=== PATIENT | female | born 1940 | race Two or more races ===

== ENCOUNTER 2017-08-28 12:00 | Observation (INO) | payer OTHER, MEDICAID ==
[2017-08-28] MEDS ORDERED: ONDANSETRON 4 MG/2 ML VIAL IVP ONE (12:13)
--- NOTE | 2017-08-28 12:16 | EDPHY ---
H & P Time Seen by Provider: 08/28/17 12:04 HPI/ROS: CHIEF COMPLAINT: Seizure, abdominal pain HISTORY OF PRESENT ILLNESS: The patient is a 77-year-old female who comes via EMS from [facility] with history of TIA, dementia, hypotension and chronic abdominal pain. [facility] staff reported that around 830 this morning she had a tonic-clonic seizure. She has never had seizures before. The patient does not remember this. She denies headache. She does state that she vomited 2 times in the middle the night and that she has epigastric pain typically but does not currently. The assisted called EMS around noon requesting that she be sent to the ER to evaluate for abdominal pain and seizures. The patient has not had a fever. The patient states that she feels normal right now. She is not sure whether not she has had diarrhea. She denies any cardiac history. REVIEW OF SYSTEMS: Constitutional: denies: chills, fever, recent illness, recent injury EENTM: denies: blurred vision, double vision, nose congestion Respiratory: denies: cough, shortness of breath Cardiac: denies: chest pain, irregular heart rate, lightheadedness, palpitations Gastrointestinal/Abdominal: See HPI Genitourinary: denies: dysuria, frequency, hematuria, pain Musculoskeletal: denies: joint pain, muscle pain Skin: denies: lesions, rash, jaundice, bruising Neurological: denies: See HPI headache, numbness, paresthesia, tingling, dizziness, weakness Hematologic/Lymphatic: denies: blood clots, easy bleeding, easy bruising Immunologic/allergic: denies: HIV/AIDS, transplant EXAM: GENERAL: Well-appearing, well-nourished and in no acute distress. HEAD: Atraumatic, normocephalic. EYES: Pupils equal round and reactive to light, extraocular movements intact, sclera anicteric, conjunctiva are normal. ENT: TMs normal, nares patent, oropharynx clear without exudates. Moist mucous membranes. NECK: Normal range of motion, supple without lymphadenopathy or JVD. LUNGS: Breath sounds clear to auscultation bilaterally and equal. No wheezes rales or rhonchi. HEART: Regular rate and rhythm without murmurs, rubs or gallops. ABDOMEN: Distended, nontender BACK: No CVA tenderness, no spinal tenderness, step-offs or deformities EXTREMITIES: Normal range of motion, no pitting or edema. No clubbing or cyanosis. NEUROLOGICAL: Cranial nerves II through XII grossly intact. Normal speech, normal gait. 5/5 strength, normal movement in all extremities, normal sensation PSYCH: Normal mood, normal affect. SKIN: Warm, dry, normal turgor, no visible rashes or lesions. Source: Patient, EMS, [facility] records Exam Limitations: No limitations - Medical/Surgical History Other PMH: TIA, dementia, hypertension, chronic abdominal pain - Family History Significant Family History: No pertinent family hx - Social History Alcohol Use: Sober Drug Use: None Constitutional: Initial Vital Signs Temperature (C) 36.8 C 08/28/17 12:07 Heart Rate 76 08/28/17 12:07 Respiratory Rate 16 08/28/17 12:07 Blood Pressure 104/66 08/28/17 12:07 O2 Sat (%) 92 08/28/17 12:07 O2 Delivery Mode Nasal Cannula O2 (L/minute) 2 Allergies/Adverse Reactions: alprazolam Allergy (Verified 08/28/17 12:19) Home Medications: Medication Instructions Recorded Acetaminophen [Tylenol ES 500 mg 1,000 mg PO Q8HRS PRN 08/28/17 (*)] Bisacodyl [Dulcolax] 10 mg RC DAILY PRN 08/28/17 LORazepam [Ativan (*)] 2 mg PO BID PRN 08/28/17 Pantoprazole Sodium [Protonix 40mg 40 mg PO DAILY 08/28/17 (*)] QUEtiapine FUMARATE [Seroquel 200 200 mg PO DAILY PRN 08/28/17 mg (*)] QUEtiapine FUMARATE [Seroquel 200 200 mg PO HS 08/28/17 mg (*)] Sennosides/Docusate Sodium 1 each PO DAILY 08/28/17 [Senna-S Tablet] Medical Decision Making - Diagnostics EKG Interpretation: An EKG obtained and was read and documented in trace view. Please see trace view for full reading and report. Sinus rhythm, no acute ischemic changes Imaging: Discussed imaging studies w/ african history professor Radiologist ED Course/Re-evaluation: 11:10 p.m. the patient is slightly anemic. Her previous is several years old. She denies blood or dark stools. We will perform a rectal exam when she returns from CT scan and a cath urine. 1:50 p.m. patient continues to complain of moderate abdominal pain. She is slightly hypotensive. I performed a rectal exam which is grossly negative but will be sent to the lab. We are obtaining a urinalysis by catheterization. CT scan is done and pending. 2:15 p.m. we discussed the test results. I would like to admit the patient for hypotension and anemia and diarrhea. I discussed the case with Dr. Duffy who agrees and will accept her to the [facility] floor. He also requests a lactic be drawn. We will began hydrating the patient. Differential Diagnosis: Partial list of the Differential diagnosis considered include but were not limited to; seizure, infection, obstruction, diverticulitis, GI bleed, peptic ulcer disease and although unlikely based on the history and physical exam, I also considered ischemia, volvulus. - Data Points Laboratory Results: Laboratory Results 08/28/17 12:30 08/28/17 12:30 Medications Given: Acetaminophen (Tylenol) 1,000 mg PO Q8HRS PRN PRN Reason: Pain, Mild Stop: 02/24/18 14:45 Last Admin: 08/28/17 20:42 Dose: 1,000 mg Enoxaparin Sodium (Lovenox) 40 mg SC DAILY JOSSELINE Stop: 02/25/18 08:59 Last Admin: 08/29/17 09:20 Dose: 40 mg Lorazepam (Ativan) 2 mg PO BID PRN PRN Reason: Anxiety Stop: 02/24/18 14:45 Last Admin: 08/29/17 09:25 Dose: 2 mg Melatonin (Melatonin) 3 mg PO HS JOSSELINE Stop: 02/24/18 20:59 Last Admin: 08/28/17 20:41 Dose: 3 mg Pantoprazole Sodium (Protonix) 40 mg PO DAILY JOSSELINE Stop: 02/25/18 08:59 Last Admin: 08/29/17 09:20 Dose: 40 mg Quetiapine Fumarate (Seroquel) 100 mg PO HS JOSSELINE Stop: 02/24/18 20:59 Last Admin: 08/28/17 20:41 Dose: 100 mg Discontinued Medications Sodium Chloride (Ns) 1,000 mls @ 0 mls/hr IV EDNOW ONE; Wide Open PRN Reason: Protocol Stop: 08/28/17 14:18 Last Admin: 08/28/17 15:04 Dose: 1,000 mls Dextrose/Sodium Chloride (D5w 1/2 Ns) 1,000 mls @ 100 mls/hr IV CONT JOSSELINE Stop: 02/24/18 14:29 Last Admin: 08/28/17 16:42 Dose: 1,000 mls Ondansetron HCl (Zofran) 4 mg IVP EDNOW ONE Stop: 08/28/17 12:14 Last Admin: 08/28/17 12:26 Dose: 4 mg Departure - Departure Disposition: [facility] Clinical Impression: Dehydration Hypotension Qualifiers: Hypotension type: other hypotension type Qualified Code(s): I95.89 - Other hypotension Diarrhea Qualifiers: Diarrhea type: presumed infectious Qualified Code(s): A09 - Infectious gastroenteritis and colitis, unspecified Anemia Qualifiers: Anemia type: unspecified type Qualified Code(s): D64.9 - Anemia, unspecified Condition: Fair
[2017-08-28 12:37] LABS: PLATELET COUNT 330 10^3/uL (150-400)
--- NOTE | 2017-08-28 12:41 | CPEKG ---
Heart Rate: 72 RR Interval: 833 P-R Interval: 180 QRSD Interval: 88 QT Interval: 388 QTC Interval: 425 P Hessmer: 18 QRS Hessmer: -16 T Wave Hessmer: 9 EKG Severity - ABNORMAL ECG - EKG Impression: SINUS ARRHYTHMIA, RATE 63-82 Electronically Signed By: Michael Alejandre 28-Aug-2017 12:43:25
[2017-08-28 12:55] LABS: INR 0.89 (0.83-1.16); PROTIME(PATIENT) 12.3 SEC (12.0-15.0)
[2017-08-28] MEDS ORDERED: IOPAMIDOL (ISOVUE-300) 100 ML BTL ONE (13:03)
[2017-08-28] MEDS ORDERED: NS 1,000 ML IV ONE (14:17)
[2017-08-28] MEDS ORDERED: PROMETHAZINE HCL 25 MG TAB PO PRN (14:18)
[2017-08-28] MEDS ORDERED: PROMETHAZINE HCL 25 MG/ML INJ IVP PRN (14:18)
[2017-08-28] MEDS ORDERED: ACETAMINOPHEN 325 MG TAB PO PRN (14:18)
[2017-08-28] MEDS ORDERED: ONDANSETRON 4 MG/2 ML VIAL IVP PRN (14:18)
[2017-08-28] MEDS ORDERED: D5W 1/2 NS 1,000 ML IV SCH (14:30)
--- NOTE | 2017-08-28 15:03 | PDGENHP ---
History and Physical - Chief Complaint Acute seizure - History of Present Illness Primary care provider: Dr. Primitivo Lema HPI: 77-year-old female presenting with acute seizure characterized as tonic colonic, with onset at 8:30 a.m. on the day of presentation. Patient does not recall any of the events of the seizure, and history is provided by the longterm. The patient does endorse associated abdominal pain and diarrhea, characterized as normal colored loose stool, nonbloody, nonmelanotic. The patient reports that duration of her abdominal pain has been for quite some time , and is located diffusely throughout. She denies any dysuria, urinary frequency, fever or chills. She reports that she is normally constipated, and has been taking a stool softener regularly. The onset of the diarrhea was on the day of this presentation. Review of the patient's records from [facility] indicate that she was sent here to evaluate for possible seizure, ongoing abdominal pain. The patient otherwise has no complaints at this time, simply wants her Ativan. History Information - Allergies/Home Medication List Allergies/Adverse Reactions: alprazolam Allergy (Verified 08/28/17 12:19) Home Medications: Acetaminophen [Tylenol ES 500 mg (*)] 1,000 mg PO Q8HRS PRN 08/28/17 [Last Taken Unknown] Bisacodyl [Dulcolax] 10 mg RC DAILY PRN 08/28/17 [Last Taken Unknown] LORazepam [Ativan (*)] 2 mg PO BID PRN 08/28/17 [Last Taken Unknown] Pantoprazole Sodium [Protonix 40mg (*)] 40 mg PO DAILY 08/28/17 [Last Taken Unknown] QUEtiapine FUMARATE [Seroquel 200 mg (*)] 200 mg PO DAILY PRN 08/28/17 [Last Taken Unknown] QUEtiapine FUMARATE [Seroquel 200 mg (*)] 200 mg PO HS 08/28/17 [Last Taken Unknown] Sennosides/Docusate Sodium [Senna-S Tablet] 1 each PO DAILY 08/28/17 [Last Taken Unknown] I have personally reviewed and updated: family history, medical history, social history, surgical history - Past Medical History dementia, diabetes type 2, GERD, hypertension, TIA Additional medical history: Chronic abdominal pain and constipation. Atelectasis. Generalized anxiety disorder. Hypothyroidism. Reports CKD stage 3. Chronic benzodiazepine dependency - Surgical History Additional surgical history: Appendectomy. Cholecystectomy. Hysterectomy and possible bladder sling - Family History Additional family history: Reportedly no family history of colon cancer - Social History Smoking Status: Never smoked Alcohol Use: Sober Drug Use: None Additional social history: Resides at [facility], believes that she resides with her daughter and her family Review of Systems Review of Systems: ROS: 10pt was reviewed & negative except for what was stated in HPI & below Gastrointestinal: Reports: abdominal pain, diarrhea Physical Exam Physical Exam: Temp Pulse Resp BP Pulse Ox 36.8 C 71 18 99/56 L 95 08/28/17 12:07 08/28/17 13:04 08/28/17 13:04 08/28/17 13:04 08/28/17 13:04 Constitutional: no apparent distress, appears nourished, not in pain Eyes: PERRL, anicteric sclera, EOMI Ears, Nose, Mouth, Throat: moist mucous membranes, hearing normal, ears appear normal, no oral mucosal ulcers Cardiovascular: regular rate and rhythym, no murmur, rub, or gallop, No edema Respiratory: no respiratory distress, no rales or rhonchi, clear to auscultation Gastrointestinal: normoactive bowel sounds, tenderness (Mild to moderate depth palpation right lower quad, left upper quadrant), No guarding, No distension Genitourinary: no bladder fullness, other (No CVA tenderness), No no bladder tenderness (Mild) Skin: warm, normal color, no rashes or abrasions, no fluctuance, no induration, No mottled Neurologic: AAOx3, sensation intact bilaterally, CN II-XII Intact, No weakness ( Motor strength 5/5 bilateral upper and lower extremities) Psychiatric: not anxious, other (Intermittently delayed thought processes, concentration 03/24, patient is unaware that she is residing at [facility]), No agitated Lab Data & Imaging Review 08/28/17 12:30 08/28/17 12:30 WBC 7.90 10^3/uL (3.80-9.50) 08/28/17 12:30 RBC 4.09 10^6/uL (4.18-5.33) L 08/28/17 12:30 Hgb 10.4 g/dL (12.6-16.3) L 08/28/17 12:30 Hct 33.0 % (38.0-47.0) L 08/28/17 12:30 MCV 80.7 fL (81.5-99.8) L 08/28/17 12:30 MCH 25.4 pg (27.9-34.1) L 08/28/17 12:30 MCHC 31.5 g/dL (32.4-36.7) L 08/28/17 12:30 RDW 17.8 % (11.5-15.2) H 08/28/17 12:30 Plt Count 330 10^3/uL (150-400) 08/28/17 12:30 MPV 9.4 fL (8.7-11.7) 08/28/17 12:30 Neut % (Auto) 90.4 % (39.3-74.2) H 08/28/17 12:30 Lymph % (Auto) 5.2 % (15.0-45.0) L 08/28/17 12:30 [place] % (Auto) 3.4 % (4.5-13.0) L 08/28/17 12:30 Eos % (Auto) 0.3 % (0.6-7.6) L 08/28/17 12:30 Baso % (Auto) 0.4 % (0.3-1.7) 08/28/17 12:30 Nucleat RBC Rel Count 0.0 % (0.0-0.2) 08/28/17 12:30 Absolute Neuts (auto) 7.15 10^3/uL (1.70-6.50) H 08/28/17 12:30 Absolute Lymphs (auto) 0.41 10^3/uL (1.00-3.00) L 08/28/17 12:30 Absolute Monos (auto) 0.27 10^3/uL (0.30-0.80) L 08/28/17 12:30 Absolute Eos (auto) 0.02 10^3/uL (0.03-0.40) L 08/28/17 12:30 Absolute Basos (auto) 0.03 10^3/uL (0.02-0.10) 08/28/17 12:30 Absolute Nucleated RBC 0.00 10^3/uL (0-0.01) 08/28/17 12:30 Immature Gran % 0.3 % (0.0-1.1) 08/28/17 12:30 Immature Gran # 0.02 10^3/uL (0.00-0.10) 08/28/17 12:30 PT 12.3 SEC (12.0-15.0) 08/28/17 12:30 INR 0.89 (0.83-1.16) 08/28/17 12:30 Sodium 137 mEq/L (134-144) 08/28/17 12:30 Potassium 4.5 mEq/L (3.5-5.2) 08/28/17 12:30 Chloride 106 mEq/L (97-110) 08/28/17 12:30 Carbon Dioxide 19 mEq/l (22-31) L 08/28/17 12:30 Anion Gap 12 mEq/L (8-16) 08/28/17 12:30 BUN 21 mg/dL (7-23) 08/28/17 12:30 Creatinine 1.0 mg/dL (0.6-1.0) 08/28/17 12:30 Estimated GFR 54 08/28/17 12:30 Glucose 127 mg/dL (70-100) H 08/28/17 12:30 Calcium 9.0 mg/dL (8.5-10.4) 08/28/17 12:30 Total Bilirubin 0.7 mg/dL (0.1-1.4) 08/28/17 12:30 Conjugated Bilirubin 0.2 mg/dL (0.0-0.5) 08/28/17 12:30 Unconjugated Bilirubin 0.5 mg/dL (0.0-1.1) 08/28/17 12:30 AST 20 IU/L (14-46) 08/28/17 12:30 ALT 29 IU/L (9-52) 08/28/17 12:30 Alkaline Phosphatase 72 IU/L (38-126) 08/28/17 12:30 Troponin I < 0.012 ng/mL (0.000-0.034) 08/28/17 12:30 Total Protein 6.3 g/dL (6.3-8.2) 08/28/17 12:30 Albumin 3.6 g/dL (3.5-5.0) 08/28/17 12:30 Lipase 205 IU/L (23-300) 08/28/17 12:30 Urine Color YELLOW 08/28/17 14:20 Urine Appearance CLEAR 08/28/17 14:20 Urine pH 5.0 (5.0-7.5) 08/28/17 14:20 Ur Specific [place] 1.035 (1.002-1.030) H 08/28/17 14:20 Urine Protein NEGATIVE (NEGATIVE) 08/28/17 14:20 Urine Ketones NEGATIVE (NEGATIVE) 08/28/17 14:20 Urine Blood NEGATIVE (NEGATIVE) 08/28/17 14:20 Urine Nitrate NEGATIVE (NEGATIVE) 08/28/17 14:20 Urine Bilirubin NEGATIVE (NEGATIVE) 08/28/17 14:20 Urine Urobilinogen NEGATIVE EU (0.2-1.0) 08/28/17 14:20 Ur Leukocyte Esterase NEGATIVE (NEGATIVE) 08/28/17 14:20 Urine RBC NONE SEEN /hpf (0-3) 08/28/17 14:20 Urine WBC 1-3 /hpf (0-3) 08/28/17 14:20 Ur Epithelial Cells NONE SEEN /lpf (NONE-1+) 08/28/17 14:20 Urine Bacteria TRACE /hpf (NONE SEEN) H 08/28/17 14:20 Hyaline Casts 1-5 /lpf (0-1) 08/28/17 14:20 Urine Mucus 1+ /lpf (NONE-1+) 08/28/17 14:20 Urine Glucose NEGATIVE (NEGATIVE) 08/28/17 14:20 Visualized and Interpreted EKG results: Yes EKG Interpretation: Positive for: other (Sinus arrhythmia, T-wave inversion in lead 3) Assessment & Plan Assessment: 77-year-old female presents with reportedly acute seizure in the setting of chronic abdominal pain, acute diarrhea Plan: 1. Seizure. Acute, new problem this provider, further workup is indicated. Unclear exactly what transpired 830 on the morning of presentation, it was reported as a seizure by [facility] and was described as tonic colonic -continue patient on seizure precautions -she has a metabolic acidosis, so this may be consistent with a seizure -I reviewed her outside records from Dr. Primitivo Lema at [facility], records indicating that on August 25 he was weaning her seroquel but was continuing her Ativan scheduled and with p.r.n. dosing, so do not believe the patient is experiencing a seizure from benzodiazepine withdrawal -her head CT demonstrates no intracranial abnormality, but she does have atrophy , and seizures in patients with atrophy and dementia can occur, will observe overnight and recommend outpatient neurology follow-up with EEG unless there is additional seizure activity while she is being monitored -hold on antiepileptic drug therapy at this time -get urinalysis to rule out urinary tract infection, get GI PCR panel to evaluate for viral/bacterial GI precipitant 2. Diarrhea. Acute, new problem this provider, further workup indicated. This does appear to be acute for the patient, and is the singular symptom of which she is acutely aware, CT imaging demonstrating diffuse small-bowel inflammation, likely consistent with gastroenteritis -get GI PCR panel -provide supportive IV fluids -hold on antidiarrheal therapy until PCR panel available -hold her stool softeners 3. Abdominal pain. Acute on chronic, likely secondary to enteritis, with underlying chronic abdominal discomfort, review of outside records indicates that she was recently placed on scheduled Tylenol, liver panel remarkable, continue home dosing 4. Chronic encephalopathy. Patient has a known history of dementia, she is currently unaware that she is residing at [facility] and believes that she is living with her daughter and her family -review of outside records also indicates that the patient has recently been suffering from some insomnia, with recent reduction in her Seroquel dosage from 200 mg nightly to 100 mg nightly -will continue the Seroquel as adjusted on 08/25 at 100 mg nightly -will add melatonin 3 mg at bedtime -will get therapy assessments, continue to assist patient with ADLs -please utilize the counter attendant services as the patient's elim ira language is Chinese and she will likely perform better in her 1st language 5. Diabetes mellitus type 2. No indication for skilled this time 6. Anemia. Hemoglobin level is 10.4 with an MCV of 80, review of outside records from 01/13/2016 demonstrates hemoglobin is 14.1 at that time -discussed with Dr. Michael Alejandre, he has reported to me that the patient's fecal occult blood negative -will get iron studies to evaluate iron deficient component and provide IV iron if needed -given patient's current functional status and longterm dependency, would not recommend additional colonoscopy workup at this time but this can be reconsidered with full family discussion 7. Chronic benzodiazepine dependency. Continue patient's home dosage Ativan, she is currently requesting Diet. Clears as tolerated Prophylaxis. High risk patient, Lovenox 40, does not appear to be bleeding her Nestor code. Full per review of [facility] records Disposition. Anticipated discharge is 08/29, pending stabilization and further workup of conditions outlined above.
[2017-08-28] MEDS: LORazepam 1 MG TAB PO PRN (15:08)
[2017-08-28] MEDS: MELATONIN 3 MG TAB PO SCH (20:41)
[2017-08-28] MEDS: QUEtiapine FUMARATE 100 MG TAB PO SCH (20:41)
[2017-08-28] MEDS: ACETAMINOPHEN 500 MG TAB PO PRN (20:42)
[2017-08-29 06:33] LABS: PLATELET COUNT 300 10^3/uL (150-400)
--- NOTE | 2017-08-29 09:17 | HOSPPROG ---
Hospitalist Progress Note Assessment/Plan: 77 y/o female noted to have a seizure at the longterm. On admission she was c/o abdominal pain and diarrhea. Today is my first encounter w the patient, chart reviewed. Met w the patient w the regional construction manager *Seizure -none further -suspect this occurred because she was dehydrated and possibly passed out -she had been weaning off Seroquel and is on scheduled Ativan -head CT shows nothing acute *gastroenteritis -no further diarrhea -she's hungry and want s to eat *abdominal pain -no further complaints *dementia with chronic encephalopathy -she is confused during my interview, thinks she lives with her family *anemia/iron deficiency -further f/u in OP setting -will add oral iron to her medication list *chronic benzodiazepine dependence -home meds resumed *Plan; if improved this afternoon and eating and drinking, will dc to [facility] Subjective: Elvia says she's hungry. Has no abdominal pain. Objective: Vital Signs Temp Pulse Resp BP Pulse Ox 36.6 C 90 18 133/77 H 91 L 08/29/17 08:44 08/29/17 08:44 08/29/17 08:44 08/29/17 08:44 08/29/17 08:44 Laboratory Results 08/29/17 04:54 08/29/17 04:54 08/28/17 08/29/17 08/30/17 05:59 05:59 05:59 Intake Total 950 Output Total 300 Balance 650 PT 12.3 SEC (12.0-15.0) 08/28/17 12:30 INR 0.89 (0.83-1.16) 08/28/17 12:30 - Physical Exam Constitutional: no apparent distress, appears nourished Eyes: PERRL Ears, Nose, Mouth, Throat: hearing normal Cardiovascular: regular rate and rhythym Respiratory: no respiratory distress Gastrointestinal: normoactive bowel sounds, soft, non-tender abdomen Genitourinary: no renal bruits Skin: normal color Musculoskeletal: generalized weakness Psychiatric: interacting appropriately, poor memory ICD10 Worksheet Patient Problems: Problems Problem Status Onset Anemia Acute Dehydration Acute Diarrhea Acute Hypotension Acute
[2017-08-29] MEDS: PANTOPRAZOLE SODIUM 40 MG TAB PO SCH (09:20)
[2017-08-29] MEDS: ENOXAPARIN 40 MG/0.4 ML SYR SC SCH (09:20)
[2017-08-29] MEDS: LORazepam 1 MG TAB PO PRN ×2 (09:25→19:58)
--- NOTE | 2017-08-29 15:20 | PDIAF ---
- Diagnosis Diagnosis: questionable seizure, iron def anemia, dehydration Code Status: Full Code - Medication Management Discharge Medications: Medications to Continue on Transfer Acetaminophen [Tylenol ES 500 mg (*)] 1,000 mg PO Q8HRS PRN 08/28/17 [Last Taken Unknown] Bisacodyl [Dulcolax] 10 mg RC DAILY PRN 08/28/17 [Last Taken Unknown] LORazepam [Ativan (*)] 2 mg PO BID PRN 08/28/17 [Last Taken Unknown] Pantoprazole Sodium [Protonix 40mg (*)] 40 mg PO DAILY 08/28/17 [Last Taken Unknown] QUEtiapine FUMARATE [Seroquel 200 mg (*)] 200 mg PO DAILY PRN 08/28/17 [Last Taken Unknown] QUEtiapine FUMARATE [Seroquel 200 mg (*)] 200 mg PO HS 08/28/17 [Last Taken Unknown] Sennosides/Docusate Sodium [Senna-S Tablet] 1 each PO DAILY 08/28/17 [Last Taken Unknown] Iron Polysacch/Iron Heme Polyp [Bifera] 28 mg PO BID #0 tab 08/29/17 [Last Taken Unknown] Melatonin [Melatonin 3 MG (*)] 3 mg PO HS tab 08/29/17 [Last Taken Unknown] Discharge Medications: Refer to the Discharge Home Medication list for PRN reason. - Orders Services needed: Physical Therapy, Occupational Therapy Diet Recommendation: no restrictions on diet Diet Texture: Regular Texture Diet Additional: recommending f/u with a neurologist and getting an eeg for further evaluation. Seroquel weaning per MD. IRON is a new medication for Elvia. Should get futher f/u with a gastroenterolgist to evaluate her anemia. - Follow Up Care Current Providers and Referrals: Patient,NotPresent [Unknown] - As per Instructions
--- NOTE | 2017-08-29 15:21 | ASMTCASEMG ---
Living Arrangements What is your living Answers: Alone arrangement? Who do you live with? Type Of Residence What kind of residence do Answers: Senior Care Facility you live in? Type of Residence Facility Name Notes: [facility] Discharge Plan Comments Coordination Status Comments Notes: Pt is a 77 y/o female admitted for abdominal pain and enteritis. Pt has a hx of dementia, diabetes type 2, GERD, hypertension and TIA. Pt is being discharged back to [facility]. CM sent [facility] d/c orders. CM available for changes. Plan: [facility] Date Signed: 08/29/2017 03:21 PM Electronically Signed By:MAHIN Lyon
[2017-08-29] MEDS: ACETAMINOPHEN 500 MG TAB PO PRN (16:18)
[2017-08-29] MEDS: ONDANSETRON DISINTEGRATING 4 MG TAB PO PRN ×2 (16:45→23:15)
[2017-08-29] MEDS ORDERED: CALCIUM CARBONATE 500 MG CHEWABLE TAB PO PRN (17:19)
[2017-08-29] MEDS ORDERED: MAG HYDROX/AL HYDROX/SIMETH 30 ML UDCUP PO PRN (17:19)
--- NOTE | 2017-08-29 17:30 | ASMTCMCOM ---
CM Note CM Note Notes: Pts discharge is being postponed due to medical reason. CM to follow tomorrow. Date Signed: 08/29/2017 05:29 PM Electronically Signed By:MAHIN Lyon
--- NOTE | 2017-08-29 18:27 | GDS ---
[f rep st] DISCHARGE SUMMARY DISCHARGE DIAGNOSES: 1. Concern for seizure. 2. Gastroenteritis. 3. Abdominal pain. 4. Dementia with chronic encephalopathy. 5. Iron deficiency anemia. 6. Chronic benzodiazepine dependence. Briefly, the patient is a 77-year-old female who presented after having a seizure at her senior living facility. It was described as tonic-clonic. The patient also was complaining of abdominal pain and diarrhea. On admission, it was noted that she had some metabolic acidosis, with would be consistent with a seizure. Recommendation is for her to get further followup with a neurologist and get an EEG. In addition, she had a CT of her head that showed no acute intracranial hemorrhage, mass, or acute ischemia. She has atrophy and white matter disease within normal limits for her age. Because of ongoing abdominal pain, she had an abdominal CT performed, which showed gastroenteritis , but no bowel obstruction. She has no pneumoperitoneum. No evidence of pancreatitis or perforated ulcer. She has right nephrolithiasis and no hydronephrosis. She has a 2.5 cm right ovarian dermoid cyst as well as sigmoid diverticulosis. Today, she is feeling markedly better. She is walking in the room, eating and drinking, and has had no diarrhea or any seizures during her stay. HOSPITAL COURSE: 1. Seizure. Suspect this could be secondary from dehydration. She has had no seizures during her stay. 2. Gastroenteritis. She is hungry and eating well. 3. Abdominal pain. No complaints. 4. Dementia. I suspect she is at her baseline. 5. Iron deficiency anemia. She should get further follow up with her primary care provider and see a surgical brace maker. She has been started on oral iron therapy. 6. Chronic benzodiazepine dependence. Her home medications have been resumed. DISCHARGE CONDITION: Stable. Blood pressure is 132/75 with a heart rate 92, O2 sats on room air 91%, respiratory rate is 18. DISCHARGE INSTRUCTIONS: 1. Further evaluation in regard to her anemia. 2. Further weaning of Seroquel as done by the [facility] physician. Addendum. Patient was not discharged on August 29 but on August 30. The patient was complaining of severe epigastric pain. Today, after further discussion with the patient's daughter, the daughter requested no further evaluation of the patient's epigastric pain. She was seen and evaluated at [facility] 1 month ago and had an endoscopy. She has had multiple endoscopies in the past and the family is aware that the patient has anemia. The daughter describes that her mom has chronic abdominal pain with underlying dementia and some anxiety. Today the patient is able to eat and drink well. Have added Zantac to her home regimen to see if this helps. >30 minutes discharging and coordinating her care. /[id number]/MODL MTDD
--- NOTE | 2017-08-29 19:31 | PDMN ---
Medical Necessity Medical necessity: Pt meets INPT criteria per BALLOON DESIGN PRINTER/MD as of 08/29/17; est. LOS >2 MN for ongoing eval/mgmt of abd pain; hx seizure, gastroenteritis, dementia with chronic encephalopathy, anemia per B[employer]OON DESIGN PRINTER progress note.
[2017-08-29] MEDS: IRON POLYSAC/IRON HEME 28 MG TAB PO SCH (19:58)
[2017-08-29] MEDS: MELATONIN 3 MG TAB PO SCH (19:58)
[2017-08-29] MEDS: QUEtiapine FUMARATE 100 MG TAB PO SCH (19:58)
[2017-08-30] MEDS: ACETAMINOPHEN 500 MG TAB PO PRN ×2 (06:17→16:07)
[2017-08-30] MEDS: ONDANSETRON DISINTEGRATING 4 MG TAB PO PRN ×3 (06:21→16:07)
[2017-08-30 07:39] VITALS: O2SAT 90
[2017-08-30] MEDS: PANTOPRAZOLE SODIUM 40 MG TAB PO SCH (09:02)
[2017-08-30] MEDS: ENOXAPARIN 40 MG/0.4 ML SYR SC SCH (09:02)
[2017-08-30] MEDS: IRON POLYSAC/IRON HEME 28 MG TAB PO SCH (09:02)
[2017-08-30] MEDS: LORazepam 1 MG TAB PO PRN (09:11)
--- NOTE | 2017-08-30 13:53 | HOSPPROG ---
Hospitalist Progress Note Assessment/Plan: 77 y/o female noted to have a seizure at the senior living. On admission she was c/o abdominal pain and diarrhea. *Seizure -none further -suspect this occurred because she was dehydrated and possibly passed out -she had been weaning off Seroquel and is on scheduled Ativan -head CT shows nothing acute *epigastric pain -spoke w GI MD who was willing to d an endoscopy, but spoke with her daughter, Nazanin, who said she was scoped a month ago at [facility] -her daughter said her mom has been scoped multiple times, and she has ongoing anemia. Her daughter said her mom has chronic epigastric pain and w her dementia , she tends to c/o this often. *gastroenteritis -no further diarrhea -she's hungry and want to eat -no diarrhea since admission *dementia with chronic encephalopathy -she is confused during my interview, thinks she lives with her family -per her daughter, she had a TIA at [facility] *anemia/iron deficiency -further f/u in OP setting -will add oral iron to her medication list *chronic benzodiazepine dependence -home meds resumed *Plan; Will aim to dc today if she can eat ok Subjective: Elvia said her pain is ongoing, says she was never scoped at [facility]. Objective: Vital Signs Temp Pulse Resp BP Pulse Ox 37.0 C 89 18 138/81 H 90 L 08/30/17 10:13 08/30/17 10:13 08/30/17 10:13 08/30/17 10:13 08/30/17 10:13 08/29/17 08/30/17 08/31/17 05:59 05:59 05:59 Intake Total 900 Balance 900 PT 12.3 SEC (12.0-15.0) 08/28/17 12:30 INR 0.89 (0.83-1.16) 08/28/17 12:30 - Physical Exam Constitutional: uncomfortable Eyes: PERRL Ears, Nose, Mouth, Throat: hearing normal Respiratory: no respiratory distress Gastrointestinal: tenderness (slight in ruq area) Skin: warm, normal color Musculoskeletal: full muscle strength Neurologic: other (alert) Psychiatric: anxious, poor memory ICD10 Worksheet Patient Problems: Problems Problem Status Onset Anemia Acute Dehydration Acute Diarrhea Acute Hypotension Acute
--- NOTE | 2017-08-30 14:49 | PDIAF ---
- Diagnosis Diagnosis: questionable seizure, iron def anemia, dehydration Code Status: Full Code - Medication Management Discharge Medications: Medications to Continue on Transfer Acetaminophen [Tylenol ES 500 mg (*)] 1,000 mg PO Q8HRS PRN 08/28/17 [Last Taken Unknown] Bisacodyl [Dulcolax] 10 mg RC DAILY PRN 08/28/17 [Last Taken Unknown] LORazepam [Ativan (*)] 2 mg PO BID PRN 08/28/17 [Last Taken Unknown] Pantoprazole Sodium [Protonix 40mg (*)] 40 mg PO DAILY 08/28/17 [Last Taken Unknown] QUEtiapine FUMARATE [Seroquel 200 mg (*)] 200 mg PO DAILY PRN 08/28/17 [Last Taken Unknown] QUEtiapine FUMARATE [Seroquel 200 mg (*)] 200 mg PO HS 08/28/17 [Last Taken Unknown] Sennosides/Docusate Sodium [Senna-S Tablet] 1 each PO DAILY 08/28/17 [Last Taken Unknown] Iron Polysacch/Iron Heme Polyp [Bifera] 28 mg PO BID #0 tab 08/29/17 [Last Taken Unknown] Melatonin [Melatonin 3 MG (*)] 3 mg PO HS tab 08/29/17 [Last Taken Unknown] Calcium Carbonate [Tums 500MG (*)] 500 mg PO TID PRN tab.chew 08/30/17 [Last Taken Unknown] Ranitidine HCl [Zantac 75] 75 mg PO HS #1 tablet 08/30/17 [Last Taken Unknown] Discharge Medications: Refer to the Discharge Home Medication list for PRN reason. - Orders Services needed: Physical Therapy, Occupational Therapy Diet Recommendation: no restrictions on diet Diet Texture: Regular Texture Diet Additional: recommending f/u with a neurologist and getting an eeg for further evaluation. Seroquel weaning per MD. IRON is a new medication for Elvia. Should get futher f/u with a gastroenterolgist to evaluate her anemia. Try heating pad on her abdomen for discomfort. Suspect some of her abominal pain is from anxiety. - Follow Up Care Current Providers and Referrals: Patient,NotPresent [Unknown] - As per Instructions
[2017-08-30 15:49] VITALS: BP 152/92; PULSE 86; RESP 19; TEMP 98.4
--- NOTE | 2017-08-30 16:07 | ASMTCMCOM ---
CM Note CM Note Notes: Spoke w/pt re; dc back to [facility]. Kandace at notified, CM also called and notified patient's daughter Marylou. Date Signed: 08/30/2017 04:07 PM Electronically Signed By:Swati Bucio RN
--- NOTE | 2017-08-31 17:58 | ASDISCHSUM ---
Discharge Information Plan Status:SNF Medically Cleared to Leave: Discharge Date:08/30/2017 05:25 PM CM D/C Disposition:[facility] Facility ADT D/C Disposition:[facility] Facility Projected Discharge Date:08/30/2017 11:00 AM Transportation at D/C: Discharge Delay Reason: Follow-Up Date:08/30/2017 11:00 AM Discharge Slot: Final Diagnosis: Placement Information Referral Type:*Fdc/SNF Referral ID:[id number] Provider Name:Karla Mancera/[facility] Address 1:[address] Phone Number: Address 2: Fax Number: City:[place] Selection Factors: State:[place] Patient Contact Information Contact Name:DARIELJULIA Relationship:Daughter Address:[address] [facility] Work Phone: City:[place] Alternate Phone: [facility] Code:[place] [address] Email: Financial Information Financial Class:Medicare Advantage Plans Primary Plan Desc:[employer] MEDICARE ADV Primary Plan Number:[id number] Secondary Plan Desc:MED[place] Secondary Plan Number:[id number] Assessment Information [facility] Initial CM Assessment Living Arrangements What is your living Answers: Alone arrangement? Who do you live with? Type Of Residence What kind of residence do Answers: [facility] Facility you live in? Type of Residence Facility Name Notes: [facility] Discharge Plan Comments Coordination Status Comments Notes: Pt is a 77 y/o female admitted for abdominal pain and enteritis. Pt has a hx of dementia, diabetes type 2, GERD, hypertension and TIA. Pt is being discharged back to [facility]. CM sent [facility] d/c orders. CM available for changes. Plan: [facility] Date Signed: 08/29/2017 03:21 PM Electronically Signed By:MAHIN Lyon [facility] CM Progress Note CM Note CM Note Notes: Pts discharge is being postponed due to medical reason. CM to follow tomorrow. Date Signed: 08/29/2017 05:29 PM Electronically Signed By:MAHIN Lyon [facility] CM Progress Note CM Note CM Note Notes: Spoke w/pt re; dc back to [facility]. Kandace at notified, CM also called and notified patient's daughter Marylou. Date Signed: 08/30/2017 04:07 PM Electronically Signed By:Swati Bucio RN Case Management Discharge Plan Note Case Management Discharge Discharge Order Complete? Answers: Yes Patient to Obtain Answers: Other Notes: [facility] Medications Transportation Arranged Answers: Other Notes: [facility] Faxed Final Orders Answers: Yes Family Notified Answers: Yes Discharge Comments Notes: D/w GEOMAGNETICIAN, final orders faxed. Kandace at notified, CHILANGO to call report. Date Signed: 08/30/2017 04:18 PM Electronically Signed By:Swati Bucio RN Intervention Information
== END 2017-08-30 17:25 ==
LOC: EDUNIT# → F3E 15:27 → OBSVTOIN 08-29 17:21 → INTOOBSV 08-29 17:21
PROVIDERS: ADMIT Internal Medicine; ATTEND Internal Medicine
DX: G40.409 Other generalized epilepsy and epileptic syndromes, not intractable, without status epilepticus (principal); E87.2 Acidosis; K52.9 Noninfective gastroenteritis and colitis, unspecified; E11.9 Type 2 diabetes mellitus without complications; F03.90 Unspecified dementia, unspecified severity, without behavioral disturbance, psychotic disturbance, mood disturbance, and anxiety; D50.9 Iron deficiency anemia, unspecified; N20.0 Calculus of kidney; D27.9 Benign neoplasm of unspecified ovary; K57.30 Diverticulosis of large intestine without perforation or abscess without bleeding
CPT/HCPCS: 70450; 74177; 93005; 96374; 97165; 99285; G0378; G8987; G8988; G8989; J1650; J2405; Q9967